=== PATIENT | female | born 1945 | race Caucasian/White ===

== ENCOUNTER 2021-04-08 10:06 | Emergency (ER) | payer MEDICARE, OTHER ==
[~2021-04-08] VITALS: Ht 160 cm; Wt 79.4 kg
[2021-04-08] MEDS ORDERED: IBUPROFEN 600 MG TAB PO STA (10:38)
[2021-04-08] MEDS ORDERED: SODIUM CHLORIDE 0.9% 1000ML 1,000 ML IV STA (10:38)
[2021-04-08] MEDS ORDERED: ATENOLOL50 MG PO (10:41)
[2021-04-08] MEDS ORDERED: CARVEDILOL3.125 MG PO (10:41)
[2021-04-08] MEDS ORDERED: ATORVASTATIN CA20 MG PO (10:41)
[2021-04-08] MEDS ORDERED: CEFTRIAXONE 1 GM VIAL IV ONE (10:45)
[2021-04-08] MEDS ORDERED: ONDANSETRON HCL INJ 2MG/ML 2ML 2 MG/ML VIAL ONE (10:57)
[2021-04-08] MEDS ORDERED: CEFTRIAXONE 1 GM VIAL ONE (10:58)
[2021-04-08] MEDS ORDERED: SODIUM CHLORIDE 0.9% 1000ML 1,000 ML ONE (10:58)
[2021-04-08] MEDS ORDERED: SODIUM CHLORIDE 0.9% 50ML 50 ML ONE (10:58)
[2021-04-08] MEDS ORDERED: CEFTRIAXONE 1 GM in SODIUM CHLORIDE 0.9% 50ML 50 ML IV ONE (11:30)
[2021-04-08 13:59] LABS: ALBUMIN 3.5 g/dL (3.5-5.0); ALBUMIN/GLOBULIN RATIO 0.9 (0.8-2.0); ANION GAP 18.4 mmol/L (8-16); CALCIUM 8.8 mg/dL (8.4-10.2); CREATININE, SERUM 0.96 mg/dL (0.57-1.11)
[2021-04-08 14:01] LABS: POTASSIUM 2.4 mmol/L (3.5-5.1)
[2021-04-08] MEDS ORDERED: POTASSIUM CHLORIDE 10MEQ/100ML 100 ML IV ONE (14:15)
[2021-04-08] MEDS ORDERED: POTASSIUM CHLORIDE 20 MEQ TAB CR PO ONE (14:38)
[2021-04-08] MEDS ORDERED: POTASSIUM CHLORIDE 10MEQ/100ML 100 ML ONE (14:39)
[2021-04-08] MEDS ORDERED: ONDANSETRON ODT4 MG PO (15:43)
[2021-04-08] MEDS ORDERED: PANTOPRAZOLE SO40 MG PO (15:43)
[2021-04-09] MEDS ORDERED: POTASSIUM CHLORIDE 10MEQ EA PO SCH (09:00)
== END 2021-04-08 16:05 | disposition home or self-care (01) ==
LOC: FSED 10:27
DX: R50.9 Fever, unspecified (principal); R10.9 Unspecified abdominal pain; R11.2 Nausea with vomiting, unspecified; N83.202 Unspecified ovarian cyst, left side; E87.6 Hypokalemia; K57.90 Diverticulosis of intestine, part unspecified, without perforation or abscess without bleeding; I72.2 Aneurysm of renal artery; I10 Essential (primary) hypertension; E78.5 Hyperlipidemia, unspecified; Z20.822 Contact with and (suspected) exposure to COVID-19
CPT/HCPCS: 36415; 71045; 74176; 76857; 80048; 80053; 80076; 81003; 85025; 87086; 96374; 99284; J0696; J2405; J3480; J7030; U0002